=== PATIENT | male | born 1960 | race Hispanic/Latino ===

== ENCOUNTER 2018-07-28 22:18 | Emergency (ER) | payer MEDICARE, OTHER ==
[2018-07-28 22:22] VITALS: BMI 32.5
[2018-07-28 22:27] VITALS: PULSE 72; RESP 18
--- NOTE | 2018-07-28 22:41 | ED PDOC ---
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 Patient states, via son acting as territory service representative, he has been experiencing RLQ pain for the past 3 days, worse 30 minutes prior to arrival, with hematuria yesterday. Patient was given Ibuprofen yesterday with some relief, but pain returned. The patient denies any fever, chills, chest pain, shortness of breath, nausea, vomiting, back pain, neck pain, headache, dizziness, or any other complaints. Symptom Onset: Gradual Symptom Course: Unchanged Activities at Onset: Light Context: Home Past Medical History - Provider Review Nursing Documentation Reviewed: Yes - Infectious Disease Hx of Infectious Diseases: None - Past Medical History Past Medical History: No Previous - Neurological HX Cerebrovascular Accident: Yes (R sided weakness/paralysis) - Musculoskeletal/Rheumatological Hx Falls: No - Psychiatric Hx Depression: No Hx Emotional Abuse: No Hx Physical Abuse: No Hx Substance Use: No - Anesthesia Hx Anesthesia: Yes Hx Anesthesia Reactions: No Hx Malignant Hyperthermia: No - Suicidal Assessment Feels Threatened In Home Enviroment: No Family/Social History - Physician Review Nursing Documentation Reviewed: Yes Family/Social History: Unknown Family HX Smoking Status: Current Some Days Smoker Hx Alcohol Use: Yes (vodka ocassionally) Hx Substance Use: No Allergies/Home Meds Allergies/Adverse Reactions: Allergies No Known Allergies Allergy (Verified 05/17/13 21:46) Home Medications: Home Meds Medication Instructions Recorded Confirmed Atorvastatin [Lipitor] 1 tab PO HS 07/28/18 07/28/18 Clopidogrel [Plavix] 1 tab PO DAILY 07/28/18 07/28/18 Diclofenac Sodium [Diclofenac 1 tab PO DAILY 07/28/18 07/28/18 Sodium ER] Famotidine [Pepcid] 1 tab PO DAILY 07/28/18 07/28/18 traZODone [Desyrel] 1 tab PO HS 07/28/18 07/28/18 Review of Systems - Physician Review All systems were reviewed & negative as marked: Yes - Review of Systems Constitutional: Normal. absent: Fevers Eyes: Normal ENT: Normal Respiratory: Normal. absent: SOB, Cough Cardiovascular: Normal. absent: Chest Pain Gastrointestinal: Abdominal Pain Genitourinary Male: Hematuria Musculoskeletal: Normal. absent: Back Pain, Neck Pain Skin: Normal. absent: Rash Neurological: Normal. absent: Headache, Dizziness Endocrine: Normal Hemo/Lymphatic: Normal Psychiatric: Normal Physical Exam Vital Signs Reviewed: Yes Vital Signs Temp Pulse Resp BP Pulse Ox 07/28/18 22:27 97.3 F L 72 18 127/85 95 Temperature: Afebrile Blood Pressure: Normal Pulse: Regular Respiratory Rate: Normal Appearance: Positive for: Well-Appearing, Non-Toxic, Comfortable Pain Distress: None Mental Status: Positive for: Alert and Oriented X 3 - Systems Exam Head: Present: Atraumatic, Normocephalic Pupils: Present: PERRL Extroacular Muscles: Present: EOMI Conjunctiva: Present: Normal Mouth: Present: Moist Mucous Membranes Neck: Present: Normal Range of Motion Respiratory/Chest: Present: Clear to Auscultation, Good Air Exchange. No: Respiratory Distress, Accessory Muscle Use Cardiovascular: Present: Regular Rate and Rhythm, Normal S1, S2. No: Murmurs Abdomen: No: Tenderness, Distention, Peritoneal Signs Back: Present: Normal Inspection Upper Extremity: Present: Normal Inspection. No: Cyanosis, Edema Lower Extremity: Present: Normal Inspection. No: Edema Neurological: Present: GCS=15, CN II-XII Intact, Speech Normal Skin: Present: Warm, Dry, Normal Color. No: Rashes Psychiatric: Present: Alert, Oriented x 3, Normal Insight, Normal Concentration Medical Decision Making ED Course and Treatment: 07/28/18 22:41 Impression: 58 year old male complaining of RLQ pain and hematuria. Plan: -- CT Abdomen and Pelvis w/o contrast -- Labs -- Urinalysis -- Reassess and disposition Prior Visits: Notes and results from previous visits were reviewed. Progress Notes: 07/29/18 01:34 CT Abdomen and Pelvis: LUNG BASES: The lung bases appear clear. No pleural effusions are seen. LIVER: Unremarkable. GALLBLADDER AND BILE DUCTS: Gallbladder is decompressed. PANCREAS: Unremarkable. SPLEEN: Unremarkable. ADRENAL GLANDS: Unremarkable. KIDNEYS, URETERS, AND BLADDER: There is moderate right hydronephrosis and there is minimal left hydronephrosis. There is an obstructing calculus in the right proximal ureter just beyond the ureteropelvic junction measuring 3 mm on series 2, image 42. There is a small calculus at the left ureteropelvic junction which may be causing some slight obstruction. This measures 2-3 mm on series 2, image 41. The bladder is predominantly decompressed. STOMACH AND BOWEL: There is constipation the colon. No bowel obstruction. APPENDIX: Normal appendix is present. PERITONEUM: No retroperitoneal or mesenteric adenopathy. No pneumoperitoneum or ascites. LYMPH NODES: No lymphadenopathy is evident. REPRODUCTIVE: The prostate is not enlarged. VASCULATURE: Moderate atherosclerosis and the abdominal aorta and branches. BONES: Moderate multilevel degenerative spine changes. IMPRESSION: 1. There is moderate right hydronephrosis and there is minimal left hydronephrosis. There is an obstructing calculus in the right proximal ureter just beyond the ureteropelvic junction measuring 3 mm on series 2, image 42. There is a small calculus at the left ureteropelvic junction which may be causing some slight obstruction. This measures 2-3 mm on series 2, image 41. 2. Additional and incidental findings as described, please see comments. Electronically signed on Jul 29, 2018 1:02:18 AM EST by: Juno Swift M.D., Certified by [facility], MS[facility], Neuroradiology - Scribe Statement The provider has reviewed the documentation as recorded by the Scribe Susan Lamar Provider Scribe Attestation: All medical record entries made by the Scribe were at my direction and personally dictated by me. I have reviewed the chart and agree that the record accurately reflects my personal performance of the history, physical exam, medical decision making, and the department course for this patient. I have also personally directed, reviewed, and agree with the discharge instructions and disposition. Disposition/Present on Arrival - Present on Arrival Any Indicators Present on Arrival: No History of DVT/PE: No History of Uncontrolled Diabetes: No Urinary Catheter: No History of Decub. Ulcer: No History Surgical Site Infection Following: None - Disposition Have Diagnosis and Disposition been Completed?: Yes Diagnosis: Kidney stone on right side Disposition: HOME/ ROUTINE Disposition Time: 02:00 Patient Problems: Current Active Problems Problem Status Onset Kidney stone on right side Acute Condition: GOOD Discharge Instructions (ExitCare): Kidney Stones in Adults Prescriptions: Tamsulosin [Flomax] 0.4 mg PO DAILY #10 cap Cephalexin [Keflex] 500 mg PO BID #14 capsule oxyCODONE/Acetaminophen [Percocet 5/325 mg Tab] 1 ea PO QID #10 tab Referrals: Myke Oneil MD [Staff Provider] - Follow up with primary Forms: [employer] (Kinyarwanda)
[2018-07-28 23:46] LABS: BASO # 0.02 K/mm3 (0.0-2.0); BASO % 0.2 % (0.0-3.0); EOS # 0.2 (0.0-0.7); EOS % 1.9 % (1.5-5.0); HEMOGLOBIN 13.9 g/dL (14.0-18.0); LYMPH # 1.9 (1.2-3.4); LYMPH % 16.8 % (22.0-35.0); MEAN CELL VOLUME 93.5 fl (80.0-105.0); MEAN CORPUSCULAR HGB CONC 33.2 g/dl (31.0-37.0); MEAN PLATELET VOLUME 10.7 fl (7.0-11.0); MONO # 0.7 (0.1-0.6); MONO % 6.1 % (1.0-6.0); RBC 4.48 10^6/uL (3.5-6.1); WHITE BLOOD COUNT 11.4 10^3/uL (4.5-11.0)
[2018-07-28 23:53] LABS: ALB/GLOB RATIO 1.2 (1.1-1.8); ALBUMIN 4.2 g/dL (3.0-4.8); ALT/SGPT 28 U/L (7-56); AST/SGOT 28 U/L (17-59); BLOOD UREA NITROGEN 29 mg/dL (7-21); CALCIUM 9.4 mg/dL (8.4-10.5); GFR NON-AFRICAN AMERICAN > 60
[2018-07-29 01:43] LABS: URINE BILIRUBIN NEGATIVE (NEGATIVE); URINE BLOOD LARGE (NEGATIVE); URINE GLUCOSE (UA) NEGATIVE (NEGATIVE); URINE LEUKOCYTE ESTERASE NEGATIVE Leu/uL (NEGATIVE); URINE PROTEIN NEGATIVE mg/dL (<30 mg/dL); URINE UROBILINOGEN 0.2 E.U./dL (<1 E.U./dL)
[2018-07-29 01:45] LABS: URINE APPEARANCE CLEAR (CLEAR); URINE COLOR YELLOW (YELLOW)
[2018-07-29 01:56] LABS: URINE CALCIUM OXALATE CRYSTALS OCC /hpf; URINE EPITHELIAL CELLS 0 - 2 /hpf (0-5); URINE WBC 0 - 2 /hpf (0-6)
[2018-07-29 02:41] VITALS: BP 125/75; TEMP 97.6; O2SAT 98
--- NOTE | 2018-07-29 11:27 | CT ---
Date of service: 07/28/2018 PROCEDURE: CT Abdomen and Pelvis without intravenous contrast HISTORY: rt flank pain COMPARISON: Abdomen ultrasound 05/18/2013. TECHNIQUE: Helical CT of the abdomen and pelvis was performed without oral or intravenous contrast as per referring physician request. Coronal and sagittal reformats were generated.. Contrast dose: None Radiation dose: Total exam DLP = 1136.5 mGy-cm. This CT exam was performed using one or more of the following dose reduction techniques: Automated exposure control, adjustment of the mA and/or kV according to patient size, and/or use of iterative reconstruction technique. FINDINGS: LOWER THORAX: Mild cardiomegaly. No pleural or pericardial effusion identified. Calcified coronary artery atherosclerosis identified. LIVER: Unremarkable. No gross lesion or ductal dilatation. GALLBLADDER AND BILE DUCTS: Contracted and otherwise unremarkable appearing. PANCREAS: Unremarkable. No gross lesion or ductal dilatation. SPLEEN: Unremarkable. ADRENALS: Unremarkable. No mass. KIDNEYS AND URETERS: There is interval mild right hydronephrosis caused by right ureterovesical junction calculus obstruction measuring 5.0 mm greatest dimension. Trace left perinephric reaction is seen with vascular calcification favored over left renal pelvis calcification at the left renal hilum. Complex cyst is seen related to the posterior margins upper midpole left kidney 2.7 cm size with a smaller lucency under 1 cm size at the same level of the left kidney more medially, too small to characterize. Lack images contrast limits evaluation of the renal parenchyma further. No parenchymal findings are identified at the right kidney. VASCULATURE: Nonaneurysmal abdominal aortic calcific atherosclerotic changes are identified. BOWEL: Stomach is distended with retained food. No bowel obstruction appreciable. No overt acute small large-bowel findings. [id number] retained fecal material is scattered throughout the colon. APPENDIX: Unremarkable. Normal appendix. PERITONEUM: Unremarkable. No free fluid. No free air. LYMPH NODES: Unremarkable. No enlarged lymph nodes. BLADDER: Unremarkable. REPRODUCTIVE: Mild prostate gland enlargement noted. BONES: No acute fracture. OTHER FINDINGS: None. IMPRESSION: A 5 mm calculus obstructs the right ureteropelvic junction causing mild right hydronephrosis. Trace right perinephric reaction noted. No left hydronephrosis. Small calcification left renal hilum is felt to reflect vascular rather than urolithiasis related calcification. Complex cyst noted upper midpole left kidney with a small lucency at the same level of the medial left kidney too small to characterize. Lack images contrast limits evaluation of the renal parenchyma bilaterally. Mild prostate gland enlargement noted.
== END 2018-07-29 02:30 | disposition home or self-care (01) ==
LOC: ED 22:18
DX: N20.0 Calculus of kidney (principal)